=== PATIENT | female | born 2000 | race Two or more races ===

== ENCOUNTER → 2022-03-11 | Emergency (ER) | payer MEDICAID, OTHER ==
[~2022-03-11] VITALS: Ht 157.5 cm; Wt 62.6 kg
[2022-03-11 17:31] VITALS: BP 106/58
== END | disposition home or self-care (01) ==
LOC: ER 17:29
DX: R42 Dizziness and giddiness (principal); Z53.21 Procedure and treatment not carried out due to patient leaving prior to being seen by health care provider